=== PATIENT | female | born 1960 | race Two or more races ===

== ENCOUNTER 2017-12-12 11:33 | Emergency (ER) | payer OTHER ==
[~2017-12-12] VITALS: Ht 154.9 cm; Wt 81.6 kg
[~2017-12-12 11:33] MED LIST: FAMOTIDINE20 MG ORAL; NITROFURANTOIN100 M2 ORAL; NKM; TRAMADOL HCL50 MG ORAL
[2017-12-12] MEDS ORDERED: NKM (12:00)
[2017-12-12] MEDS ORDERED: BENADRYL25 MG ORAL (12:25)
[2017-12-12] MEDS ORDERED: HYDROCORTISONE-30 GM TOPIC (12:25)
--- NOTE | 2017-12-12 12:26 | Emergency Room Report ---
History of Present Illness General Chief Complaint: Skin Rash/Abscess Source: Patient Present Illness HPI 57 yo female patient presents to ER complaining of facial rash s/p facial last week. Patient reports face is itching since that time. Patient reports using Benadryl cream since that time. 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 Patient concerned about going to work with red face. Allergies: Coded Allergies: No Known Allergies (Unverified , 08/06/14) Patient History Past Medical History: see triage record Reviewed Nursing Documentation: PMH: Agreed, PSxH: Agreed Nursing Documentation-PMH Past Medical History: No Stated History Review of Systems All Other Systems: negative except mentioned in HPI Physical Exam Vital Signs Date Time Temp Pulse Resp B/P (MAP) Pulse Ox O2 Delivery O2 Flow Rate FiO2 12/12/17 11:55 98.1 84 17 128/81 96 Room Air 98.1 Sp02 EP Interpretation: reviewed, normal General Appearance: well appearing, no apparent distress, alert, GCS 15 Head: normocephalic, atraumatic Eyes: bilateral eye normal inspection, bilateral eye PERRL ENT: hearing grossly normal, normal pharynx, no angioedema, normal voice, uvula midline, moist mucus membranes Neck: full range of motion Respiratory: lungs clear, normal breath sounds, no rhonchi, no respiratory distress, no accessory muscle use, no wheezing, speaking full sentences Cardiovascular #1: regular rate, rhythm Musculoskeletal: back normal, digits/nails normal, gait/station normal, normal range of motion, non-tender Neurologic: alert, oriented x3, responsive, motor strength/tone normal, sensory intact Psychiatric: mood/affect normal Skin: other - erythema, mild edema of T zone and cheeks bilaterally on face Lymphatic: no adenopathy Medical Decision Making PA Attestation Dr. Mondragon is my supervising Physician whom patient management has been discussed with. Diagnostic Impression: Primary Impression: Rash and other nonspecific skin eruption ER Course Pt. presents to the ED c/o rash. Ddx considered but are not limited to atopic dermatitis, allergic reaction, rash. Vital signs: are WNL, pt. is afebrile Ordered dexamethasone. ER COURSE: Patient informed that facials can sometimes cause local skin irritation that persists for more than a few days. Patient instructed to followup with primary care provider and request referral to [facility]. Patient instructed not to have skin procedures performed except by [facility]. Will provide patient with work note. Patient reports understanding and agreement to treatment plan. DISCHARGE: -Rx given for Benadryl for pruritis. -Rx given for hydrocortisone-aloe vera cream. Do not apply to eyes. Take Tylenol at home for any pain symptoms that may arise. At this time pt. is stable for d/c to home.Patient resting comfortably, in no acute distress, nontoxic appearing. Will provide printed patient care instructions, and any necessary prescriptions. Care plan and follow up instructions have been discussed with the patient prior to discharge. Patient provided with list of healthcare clinics to establish primary care physician. Patient instructed to follow-up with primary care provider in 3-5 days. Patient questions asked and answered. ER precautions given. Patient instructed to return to ER immediately for any new or worsening of symptoms including but not limited to increasing SOB, persistent fever. Last Vital Signs Date Time Temp Pulse Resp B/P (MAP) Pulse Ox O2 Delivery O2 Flow Rate FiO2 12/12/17 11:55 98.1 84 17 128/81 96 Room Air 98.1 Disposition: HOME, SELF-CARE Condition: Stable Scripts Hydrocortisone/Aloe Vera 1%* (HYDROCORTISONE-ALOE 1% CREAM*) Y Cr 1 APPLIC TOPIC Q6H Y for Itching, #30 GM Prov: Cuong Lopez 12/12/17 Diphenhydramine Hcl* (BENADRYL*) 25 Mg Capsule 25 MG ORAL Q6H Y for Itching for 7 Days, #15 CAP Prov: Cuong Lopez 12/12/17 Patient Instructions: Rash Additional Instructions: Followup with primary care provider in 3 -5 days. Take medications as directed. Patient questions asked and answered. ER precautions given, patient instructed to return to ER immediately for any new or worsening of symptoms. Cuong Lopez Dec 12, 2017 12:26
[2017-12-12 12:45] VITALS: BP 128/81
== END 2017-12-12 12:45 | disposition home or self-care (01) ==
LOC: EMR 12:44
DX: R21 Rash and other nonspecific skin eruption (principal)
CPT/HCPCS: 99284; J8540